=== PATIENT | female | born 1990 | race Caucasian/White ===

== ENCOUNTER 2016-09-12 12:15 | Emergency (ER) | payer BC, MEDICAID ==
[~2016-09-12] VITALS: Ht 160 cm; Wt 79.4 kg
[2016-09-12 12:59] VITALS: BP 149/76
[2016-09-12] MEDS ORDERED: WELLTAB40 PO (13:03)
[2016-09-12] MEDS ORDERED: CLON0.5T PO (13:03)
== END 2016-09-12 16:06 | disposition left against medical advice (07) ==
LOC: M ED 14:02
DX: J02.9 Acute pharyngitis, unspecified (principal); Z53.21 Procedure and treatment not carried out due to patient leaving prior to being seen by health care provider

== ENCOUNTER → 2016-09-12 | Outpatient (REF) | payer BC ==
[~2016-09-12] MED LIST: CLON0.5T PO; WELLTAB40 PO
== END ==
LOC: M LAB REF 10:05
PROVIDERS: ATTEND Physician Assistant
DX: J02.9 Acute pharyngitis, unspecified (principal)

== ENCOUNTER → 2016-09-27 | Outpatient (REF) | payer BC | LOC: M LAB REF 16:53 | PROVIDERS: ATTEND Physician Assistant | DX: R30.0 Dysuria (principal) ==

== ENCOUNTER → 2016-10-28 | Outpatient (REF) | payer BC | LOC: M LAB REF 14:41 | PROVIDERS: ATTEND Physician Assistant | DX: B08.8 Other specified viral infections characterized by skin and mucous membrane lesions (principal) ==

== ENCOUNTER → 2016-11-16 | Outpatient (REF) | payer BC | LOC: M LAB REF 14:44 | PROVIDERS: ATTEND Nurse Practitioner Family | DX: L08.9 Local infection of the skin and subcutaneous tissue, unspecified (principal) ==

== ENCOUNTER → 2017-02-06 | Outpatient (REF) | payer BC | LOC: M LAB REF 17:24 | PROVIDERS: ATTEND Physician Assistant | DX: N39.0 Urinary tract infection, site not specified (principal) ==

== ENCOUNTER → 2017-03-11 | Outpatient (REF) | payer BC | LOC: M LAB REF 19:19 | PROVIDERS: ATTEND Physician Assistant | DX: J02.9 Acute pharyngitis, unspecified (principal) ==

== ENCOUNTER → 2017-11-29 | Outpatient (REF) | payer MEDICAID | LOC: M LAB REF 09:59 | DX: R11.0 Nausea (principal); R11.10 Vomiting, unspecified ==

== ENCOUNTER → 2018-12-06 | Outpatient (CLI) | payer OTHER, MEDICAID ==
[~2018-12-06] MED LIST changes: -CLON0.5T PO; +CLON0.5T8 PO
== END ==
LOC: M LRY 11:05
PROVIDERS: ATTEND Nurse Practitioner Family
DX: Z53.9 Procedure and treatment not carried out, unspecified reason (principal); R06.02 Shortness of breath